=== PATIENT | female | born 1945 | race Caucasian/White ===

== ENCOUNTER → 2016-07-10 | Outpatient (CLI) | payer OTHER | END | disposition home or self-care (01) | LOC: C.LAB 08:52 | PROVIDERS: ATTEND Orthopaedic Surgery Sports Medicine | DX: M65.20 Calcific tendinitis, unspecified site (principal) ==

== ENCOUNTER 2018-03-24 07:09 | Inpatient (IN) ==
--- NOTE | 2018-03-03 10:20 | PAT Medication Instructions ---
Medication Instructions Date of Service March 03, 2018 Home Medications L. gasseri-B. bifidum-B longum [[facility]] 1 tab PO QAM cyclobenzaprine 10 mg PO TID NEEDED hydrochlorothiazide 25 mg PO QAM levothyroxine 112 mcg PO QAM lisinopril 10 mg PO HS loperamide [Imodium A-D] 2 mg PO Q2D meloxicam 15 mg PO QAM omeprazole 20 mg PO QAM pravastatin 20 mg PO HS Bone Meal With Vitamin D 2 cap PO HS ascorbic acid (vitamin C) 1 g PO DAILY aspirin [Aspir-Low] 81 mg PO DAILY biotin 1 cap PO DAILY calcium carbonate [Calcium 600] 1,200 mg PO HS cholecalciferol (vitamin D3) 5,000 unit PO DAILY chromium-brindal rehman [Garcinia Cambogia] 1,500 mg PO HS coconut oil 1 cap PO QPM cyanocobalamin (vitamin B-12) 5,000 mcg PO DAILY dolomite 2 cap PO HS pumpkin seed extract-soy germ [Azo Bladder Control] 1 cap PO DAILY pyridoxine (vitamin B6) 100 mg PO Q OTHER DAY selenium 100 mcg PO DAILY turmeric 1 cap PO DAILY vitamin E 450 mg PO DAILY ASK your surgeon for instructions meloxicam 15 mg PO QAM aspirin [Aspir-Low] 81 mg PO DAILY STOP taking 2 weeks before surgery L. gasseri-B. bifidum-B longum [[facility]] 1 tab PO QAM selenium 100 mcg PO DAILY turmeric 1 cap PO DAILY vitamin E 450 mg PO DAILY dolomite 2 cap PO HS pumpkin seed extract-soy germ [Azo Bladder Control] 1 cap PO DAILY chromium-brindal rehman [Garcinia Cambogia] 1,500 mg PO HS coconut oil 1 cap PO QPM biotin 1 cap PO DAILY calcium carbonate [Calcium 600] 1,200 mg PO HS cholecalciferol (vitamin D3) 5,000 unit PO DAILY Bone Meal With Vitamin D 2 cap PO HS DO NOT take the morning of surgery cyclobenzaprine 10 mg PO TID NEEDED hydrochlorothiazide 25 mg PO QAM loperamide [Imodium A-D] 2 mg PO Q2D pyridoxine (vitamin B6) 100 mg PO Q OTHER DAY cyanocobalamin (vitamin B-12) 5,000 mcg PO DAILY ascorbic acid (vitamin C) 1 g PO DAILY Take morning of surgery With a small sip of water, OTHERWISE NOTHING TO EAT OR DRINK AFTER MIDNIGHT: levothyroxine 112 mcg PO QAM omeprazole 20 mg PO QAM Take evening before surgery cyclobenzaprine 10 mg PO TID NEEDED lisinopril 10 mg PO HS pravastatin 20 mg PO HS Other Notes If you have any questions please call us at [phone] or [phone] or [phone] or [phone]
--- NOTE | 2018-03-03 12:09 | Anesthesiology Consultation ---
Date of Service March 03, 2018 Assessment & Plan (1) Encounter for pre-operative examination: Chart Review Chart Review: Acceptable Risk for Surgery and Patient seen in Pre Admission Testing Consults Requested medical (Dr. Lay (03/08)) Patient was seen by PCP office on 03/08/17, who stated that "Patient is medically cleared". Teaching & Discussion Pre-Anesthesia Teaching/Discussion Notes: Instructed NPO after midnight before surgery, except medications with 15 cc of water. Medication instructions provided according to the PAT guidelines. History Surgery Operation Date: 03/17/18 08:45 Proposed Procedures p Left Total Hip Arthroplasty - Michael Mcmahan MD Height/Weight Height: 5 ft 5 in Weight: 115.1 kg Allergies Allergy/AdvReac Type Severity Reaction Status Date / Time acetaminophen Allergy Rash Verified 03/02/18 11:07 [From Darvocet-N] adhesive Allergy Rash Verified 03/02/18 11:07 cephalexin [From Keflex] Allergy HOSPITALIZED, Verified 03/02/18 11:07 PT STATES SHE COULDN'T WALK ciprofloxacin [From Cipro] Allergy ITCHING Verified 03/02/18 11:07 AND RASH propoxyphene Allergy Rash Verified 03/02/18 11:07 [From Darvocet-N] tramadol Allergy Rash Verified 03/02/18 11:07 gluten AdvReac INTOLERANCE Verified 03/02/18 11:07 Medications Home Medications Medication Instructions Recorded Confirmed Last Taken L. gasseri-B. bifidum-B longum 1 tab PO QAM 03/02/18 03/02/18 Unknown [[facility]] cyclobenzaprine 10 mg PO TID PRN 03/02/18 03/02/18 Unknown hydrochlorothiazide 25 mg PO QAM 03/02/18 03/02/18 Unknown levothyroxine 112 mcg PO QAM 03/02/18 03/02/18 Unknown lisinopril 10 mg PO HS 03/02/18 03/02/18 Unknown loperamide [Imodium A-D] 2 mg PO Q2D 03/02/18 03/02/18 Unknown meloxicam 15 mg PO QAM 03/02/18 03/02/18 Unknown omeprazole 20 mg PO QAM 03/02/18 03/02/18 Unknown pravastatin 20 mg PO HS 03/02/18 03/02/18 Unknown Bone Meal With Vitamin D 2 cap PO HS 03/03/18 03/03/18 Unknown ascorbic acid (vitamin C) [Vitamin 1 g PO DAILY 03/03/18 03/03/18 Unknown C] aspirin [Aspir-Low] 81 mg PO DAILY 03/03/18 03/03/18 Unknown biotin 1 cap PO DAILY 03/03/18 03/03/18 Unknown calcium carbonate [Calcium 600] 1,200 mg PO HS 03/03/18 03/03/18 Unknown cholecalciferol (vitamin D3) 5,000 unit PO DAILY 03/03/18 03/03/18 Unknown [Vitamin D3] chromium-brindal rehman [Garcinia 1,500 mg PO HS 03/03/18 03/03/18 Unknown Cambogia] coconut oil 1 cap PO QPM 03/03/18 03/03/18 Unknown cyanocobalamin (vitamin B-12) 5,000 mcg PO DAILY 03/03/18 03/03/18 Unknown dolomite 2 cap PO HS 03/03/18 Unknown pumpkin seed extract-soy germ [Azo 1 cap PO DAILY 03/03/18 03/03/18 Unknown Bladder Control] pyridoxine (vitamin B6) 100 mg PO Q OTHER DAY 03/03/18 03/03/18 Unknown selenium 100 mcg PO DAILY 03/03/18 03/03/18 Unknown turmeric 1 cap PO DAILY 03/03/18 03/03/18 Unknown vitamin E 450 mg PO DAILY 03/03/18 03/03/18 Unknown Past Medical History Medical History Asthma ALLERGY INDUCED OR COLD VIRUS INDUCED CKD (chronic kidney disease) stage 3, GFR 30-59 ml/min Celiac disease GERD (gastroesophageal reflux disease) History of breast cancer S/P MASTECTOMY OF LEFT BREAST. Hyperlipidemia Hypertension Hypothyroidism Morbid obesity Osteoarthritis Spinal curvature PT STATES SHE RECALLS HAVING A SPINAL FOR CHILDBIRTH AND DUE TO A CURVATURE SHE STATES THEY HAD A VERY DIFFICULT TIME ATTEMPTING THE SPINAL. Past Surgical History Surgical History History of blepharoplasty History of colonoscopy History of esophagogastroduodenoscopy (EGD) WITH STRETCHING History of left mastectomy History of surgery TRANS-FLAP RECONSTRUCTION FOLLOWING MASTECTOMY History of total knee replacement B/L Status post wrist surgery AGE 10 FOLLOWING A FALL. Past Anesthesia History No Hx of Anesthesia Complications and No Family Hx of Anesthesia Complications History of PONV No Motion Sickness Screening History of Motion Sickness: No Social History Smoking Status: Never smoker Do You Dip or Chew Tobacco: No Hx Alcohol Use: Yes alcohol intake frequency: holidays/special occasions only Alcohol Intake Frequency Comment: 0 Hx Substance Use: No substance use type: does not use Exercise / Class Metabolic Activity III < 4 Walking/Shop/Light housework (Limited by hip pain currently. Does stairs once daily. Denies CP or SOB. ) Review of Systems Patient denies chest pain, shortness of breath, dyspnea on exertion, reflux ( controlled by medication), cough, wheezing, palpitations. +Joint pain (hips, hands) Physical Exam Vital Signs BP: 133/83 P: 88 R: 18 T: 98.0 SPO2: 96% on RA Constitutional + morbidly obese ENMT Thyromental Distance: < 3.5 Finger Breadths (3) Mallampati Class: II Upper Partial Neck normal visual inspection and trachea midline; neck extension not limited Respiratory normal respiratory effort Auscultation: lungs clear to auscultation bilaterally Cardiovascular Rate/Rhythm: regular rate and regular rhythm Heart Sounds: no murmur Vessels: no carotid bruit Neurologic moves all extremities Psychiatric Orientation: alert and oriented x 3 Testing Electrocardiogram Date: 03/03/18 Findings: + NSR @ (85) Chest X-Ray Date: 03/03/18 FINDINGS: Eventration of the right hemidiaphragm. The lungs are clear. The heart is normal in size. Mildly tortuous thoracic aorta. No pleural effusions. No pneumothorax. Surgical clips within the left axilla. Mild superior endplate compression deformities within the upper lumbar spine and the mid thoracic spine. These are technically age indeterminate but likely old. IMPRESSION: No acute process. Laboratory Results 03/03/18 12:45 03/03/18 13:01 Blood Type A Positive 03/03/18 12:45 Antibody Screen NEGATIVE 03/03/18 12:45 PT 10.4 Seconds (9.0-12.0) 03/03/18 12:45 INR 1.0 (0.9-1.1) 03/03/18 12:45 APTT 26.5 Seconds (21.0-31.0) 03/03/18 12:45 Hemoglobin A1c 5.4 % (4.5-5.6) 03/03/18 12:45 Urine Color Dark Yellow 03/03/18 13:01 Urine Appearance Cloudy (Clear) H 03/03/18 13:01 Urine pH 5.0 (4.5-7.5) 03/03/18 13:01 Ur Specific [place] 1.026 (1.000-1.030) 03/03/18 13:01 Urine Protein Negative (Negative) 03/03/18 13:01 Urine Glucose (UA) Negative (Negative) 03/03/18 13:01 Urine Ketones Trace (Negative) H 03/03/18 13:01 Urine Nitrite Positive (Negative) H 03/03/18 13:01 Ur Leukocyte Esterase 3+ (Negative) H 03/03/18 13:01 Urine WBC (Auto) >30 /hpf (0-5) H 03/03/18 13:01 Urine RBC (Auto) 0-4 /hpf (0-4) 03/03/18 13:01 U Hyaline Cast (Auto) 5-10 /lpf (0-5) H 03/03/18 13:01 U Epithel Cells (Auto) >30 /lpf (0-5) H 03/03/18 13:01 Urine Bacteria (Auto) 4+ (Negative) H 03/03/18 13:01 03/03/18 13:01 Urine Culture - Final Urine,Clean Catch Escherichia coli Group B Beta Strep Dr. Mcmahan's office notified of urine results. BUN/Cr elevated, but consistent with her CKD stage III.
--- NOTE | 2018-03-03 12:21 | PAT Medication Instructions ---
Medication Instructions Date of Service March 03, 2018 Home Medications [[facility]] 1 tab PO QAM cyclobenzaprine 10 mg PO TID PRN hydrochlorothiazide 25 mg PO QAM levothyroxine 112 mcg PO QAM lisinopril 10 mg PO HS loperamide [Imodium A-D] 2 mg PO Q2D meloxicam 15 mg PO QAM omeprazole 20 mg PO QAM pravastatin 20 mg PO HS Bone Meal With Vitamin D 2 cap PO HS ascorbic acid (vitamin C) 1 g PO DAILY aspirin [Aspir-Low] 81 mg PO DAILY biotin 1 cap PO DAILY calcium carbonate [Calcium 600] 1,200 mg PO HS cholecalciferol (vitamin D3) 5,000 unit PO DAILY chromium-brindal rehman [Garcinia Cambogia] 1,500 mg PO HS coconut oil 1 cap PO QPM cyanocobalamin (vitamin B-12) 5,000 mcg PO DAILY dolomite 2 cap PO HS [Azo Bladder Control] 1 cap PO DAILY pyridoxine (vitamin B6) 100 mg PO Q OTHER DAY selenium 100 mcg PO DAILY turmeric 1 cap PO DAILY vitamin E 450 mg PO DAILY ASK your surgeon for instructions meloxicam 15 mg PO QAM STOP taking 2 weeks before surgery Bone Meal With Vitamin D 2 cap PO HS chromium-brindal rehman [Garcinia Cambogia] 1,500 mg PO HS coconut oil 1 cap PO QPM dolomite 2 cap PO HS selenium 100 mcg PO DAILY turmeric 1 cap PO DAILY vitamin E 450 mg PO DAILY DO NOT take the morning of surgery [[facility]] 1 tab PO QAM cyclobenzaprine 10 mg PO TID PRN hydrochlorothiazide 25 mg PO QAM loperamide [Imodium A-D] 2 mg PO Q2D ascorbic acid (vitamin C) 1 g PO DAILY biotin 1 cap PO DAILY cholecalciferol (vitamin D3) 5,000 unit PO DAILY cyanocobalamin (vitamin B-12) 5,000 mcg PO DAILY [Azo Bladder Control] 1 cap PO DAILY pyridoxine (vitamin B6) 100 mg PO Q OTHER DAY Take morning of surgery With a small sip of water, OTHERWISE NOTHING TO EAT OR DRINK AFTER MIDNIGHT: levothyroxine 112 mcg PO QAM omeprazole 20 mg PO QAM aspirin [Aspir-Low] 81 mg PO DAILY Take evening before surgery pravastatin 20 mg PO HS calcium carbonate [Calcium 600] 1,200 mg PO HS cyclobenzaprine 10 mg PO TID PRN (if needed) lisinopril 10 mg PO HS Other Notes If you have any questions please call us at [phone] or [phone] or [phone] or [phone]
[2018-03-03 13:19] LABS: Basophils # (auto) 0.05 K/uL (0-0.2); Basophils % (auto) 0.9 %; Eosinophils # (auto) 0.21 K/uL (0-0.5); Eosinophils % (auto) 3.6 %; Hematocrit (blood only) 38.8 % (37-47); Hemoglobin 12.6 g/dL (12.0-16.0); Immature Granulocytes # (auto) 0.01 K/uL (0.00-0.02); Immature Granulocytes % (auto) 0.2 %; Lymphocytes # (auto) 1.71 K/uL (1.2-3.4); Lymphocytes % (auto) 29.4 %; Mean Corpuscular Hgb Conc 32.5 g/dL (32-36); Monocytes # (auto) 0.42 K/uL (0.11-0.59); Monocytes % (auto) 7.2 %; Neutrophils # (auto) 3.41 K/uL (1.4-6.5); Neutrophils % (auto) 58.7 %; Platelet Count 287 K/uL (130-400); RDW Coefficient of Variation 12.4 % (11.5-14.5); RDW Standard Deviation 47.3 fL (36.4-46.3); Red Blood Count 3.73 M/uL (4.2-5.4); White Blood Count 5.81 K/uL (4.8-10.8)
[2018-03-03 13:29] LABS: Partial Thromboplastin Time 26.5 Seconds (21.0-31.0); Prothrombin Time 10.4 Seconds (9.0-12.0)
--- NOTE | 2018-03-03 13:31 | XRay Report ---
XR chest Pre-admission PA/Lat HISTORY: Preop. COMPARISON: None. FINDINGS: Eventration of the right hemidiaphragm. The lungs are clear. The heart is normal in size. M ildly tortuous thoracic aorta. No pleural effusions. No pneumothorax. Surgical clips within the left axilla. Mild superior endplate compression deformities within the upper lumbar spine and the mid thor acic spine. These are technically age indeterminate but likely old. IMPRESSION: No acute process. Electronically signed by: Rogerio Denis M.D. 03/03/2018 1:30 PM
[2018-03-03 13:48] LABS: Estimated Average Glucose 108 mg/dl
[2018-03-03 14:14] LABS: Albumin Level 3.7 gm/dl (3.4-5.0); BUN Creatinine Ratio 23.2 (10-20); Calcium 9.2 mg/dl (8.5-10.1); Creatinine Clr Calc Pharmacy 42.4 ml/min; Est GFR (African American) 38.9; Est GFR (Non-African American) 33.6; Potassium 4.6 mmol/L (3.5-5.1)
[2018-03-03 14:18] LABS: Appearance Urine Cloudy (Clear); Bacteria Urine Automated 4+ (Negative); Bilirubin Urine Negative (Negative); Color Urine Dark Yellow; Epithelial Cell Urine Auto >30 /lpf (0-5); Glucose Urine UA Negative (Negative); Ketones Urine Trace (Negative); Leukocyte Esterase Urine 3+ (Negative); Nitrite Urine Positive (Negative); Protein Urine Negative (Negative); Specific Gravity Urine 1.026 (1.000-1.030); Urobilinogen Urine Negative (Negative); WBC Urine Automated >30 /hpf (0-5)
--- NOTE | 2018-03-23 10:18 | History and Physical Report ---
DATE OF ADMISSION: 03/24/2018 CHIEF COMPLAINT: Left hip pain. HISTORY OF PRESENT ILLNESS: The patient is a 72-year-old female with known severe osteoarthritis about her left hip. She has been working on her weight loss to get her weight into an acceptable BMI which she has accomplished. She continues to have pain and disability with activities of daily living. She has pain with prolonged weightbearing and standing activities. She has difficulty with any kneeling, bending, or squatting activities. Due to ongoing pain and disability, she now desires to proceed with left total hip arthroplasty. PAST MEDICAL HISTORY: Hypertension, osteoarthritis, hypothyroidism, metabolic syndrome, hyperlipidemia, obesity, stage III chronic kidney disease, vitamin D deficiency, spinal stenosis, celiac disease, osteoporosis. PAST SURGICAL HISTORY: Total knee arthroplasty in 1998 and 2000, colonoscopy, eye surgery, breast surgery. MEDICATIONS: Fluticasone nasal spray 2 sprays each nostril daily, pravastatin 40 mg daily, levothyroxine 112 mcg daily, hydrochlorothiazide 25 mg daily, lisinopril 10 mg daily, Prilosec 20 mg daily, meloxicam 15 mg daily, Flexeril 10 mg twice daily p.r.n., hydroxyzine 10 mg q. 8 hours p.r.n., vitamin D 1000 units daily, probiotic daily, Ventolin inhaler 2 puffs q. 4 hours p.r.n. shortness of breath, Flovent inhaler 2 puffs twice daily p.r.n., Caltrate plus D daily, Dolamide 2 tablets at bedtime, vitamin C 1000 mg daily, vitamin E 400 units daily, baby aspirin 81 mg daily, vitamin B12 2000 mcg daily, vitamin B6 100 mg twice weekly. ALLERGIES: KEFLEX CAUSES ITCHING AND RASH, BACTRIM CAUSES HIVES, CIPRO CAUSES ITCHING, DARVOCET CAUSES RASH, GLUTEN, MACROBID, PENICILLIN, TRAMADOL, ZOCOR. SOCIAL HISTORY AND REVIEW OF SYSTEMS: Noncontributory. PHYSICAL EXAMINATION: GENERAL: Well-nourished, well-developed elderly female who appears stated age. HEENT: Normocephalic, atraumatic, extraocular movements intact, oropharynx pink and moist. NECK: Supple without adenopathy. LUNGS: Clear to auscultation bilaterally. HEART: Regular rate and rhythm. ABDOMEN: Soft, nontender, nondistended. EXTREMITIES: The upper extremities are within normal limits. Left hip demonstrates limited painful range of motion. There is limitation of active and passive internal/external rotation with pain at end range. X-RAYS: X-rays were reviewed. She has severe osteoarthritis about the left hip with complete loss of the joint space. There are probable cystic changes about the femoral head and acetabulum. ASSESSMENT: Left hip degenerative joint disease. PLAN: Risks versus benefits were discussed, consent was obtained. The patient's primary care physician is Dr. Alvarez from [facility] in [place]. Will proceed with left total hip arthroplasty as indicated.
[~2018-03-24 07:09] MED LIST: ACETAMINOPHEN 500 MG TAB PO SCH; BUPIVACAINE 0.5 % 5 MG/1 ML PF 10ML VIAL ONE; CEFAZOLIN 2000MG 2,000 MG/15 ML SYR IV SCH; CLINDAMYCIN 600 MG/54 ML BAG IV SCH; CeleBREX 200 MG CAP PO SCH; FAMOTIDINE 20 MG TAB PO SCH; GABAPENTIN 300 MG PO SCH; METOCLOPRAMIDE HCL 10 MG TABLET PO SCH; ROPIVACAINE 0.5% HCL/PF 150 MG, BUPIVACAINE 0.5% MPF 30 ML, EPINEPHrine 30MG/30ML (OR U... INFIL SCH; SODIUM CHLORIDE 0.9% 1000ML IV SCH; TRANEXAMIC ACID 1,000 MG **IV Intra-op IV SCH; TRANEXAMIC ACID 1,000 MG **IV Pre-op IV SCH; dexAMETHasone 4 MG TAB PO SCH
[2018-03-24] MEDS: SODIUM CHLORIDE 0.9% 500 ML IV SCH ×3 (07:45→21:38)
[2018-03-24] MEDS ORDERED: MIDAZOLAM HCL 1 MG/ML 2ML VIAL ONE (07:59)
[2018-03-24] MEDS ORDERED: BACITRACIN INJ 50,000 UNIT VIAL ONE (07:59)
[2018-03-24] MEDS ORDERED: ORTHO JOINT ANESTHETIC ONE (07:59)
[2018-03-24] MEDS ORDERED: POVIDONE-IODINE OP SOLN 30 ML BTL ONE (07:59)
[2018-03-24] MEDS ORDERED: fentaNYL citrate 100 MCG/2 ML VIAL ONE ×2 (08:00→10:57)
--- NOTE | 2018-03-24 08:03 | History & Physical Bridge Note ---
Date of Service March 24, 2018 History & Physical Bridge Note I have examined the patient, reviewed the History & Physical and in the interval since the performance of the History & Physical I have noted the following changes of clinical significance: no changes noted
[2018-03-24] MEDS ORDERED: ACETAMINOPHEN 500 MG TAB ONE (08:16)
[2018-03-24] MEDS ORDERED: TRANEXAMIC ACID 1,000 MG in 0.9 % SODIUM CHLORIDE 100 ML IV ONE ×2 (08:30→09:00)
[2018-03-24] MEDS ORDERED: ONDANSETRON INJ 2 MG/ML 2 ML VIAL IV PRN ×2 (09:12→13:01)
[2018-03-24] MEDS ORDERED: PHENYLEPHRINE 100MCG/ML 5ML SYR IV PRN (09:12)
[2018-03-24] MEDS ORDERED: ePHEDrine sulfate 50 MG/ML AMP IV PRN (09:12)
[2018-03-24] MEDS ORDERED: ATROPINE SULFATE 0.1 MG/ML 10ML SYR IV PRN (09:12)
[2018-03-24] MEDS ORDERED: HYDROmorphone INJ 1 MG/ML SYRINGE IV PRN (09:12)
[2018-03-24] MEDS ORDERED: PROPOFOL IV EMULSION 10 MG/ML 20 ML VIAL IV ONE ×3 (09:45→12:48)
[2018-03-24] MEDS ORDERED: LIDOCAINE HCL 2% 2 ML VIAL/AMP(20MG/ML) INFIL ONE (09:45)
--- NOTE | 2018-03-24 10:36 | Operative Report ---
Post Operative Report Pre & Post Diagnosis Operation Date: 03/24/18 09:35 Pre-Op Diagnosis: Left Hip Degenerative Joint Disease Post-Op Diagnosis: Left Hip Degenerative Joint Disease Procedure Operation Date: 03/24/18 09:35 Actual Procedures p Left Total Hip Arthroplasty(Left) - Michael Mcmahan MD Surgeon Michael Mcmahan MD [employer] Max Estimated Blood Loss 100 Findings Consistent with Post-Op Diagnosis Specimens Femoral head Anesthesia Type Spinal Complications none Disposition Accompanied Patient To Recovery: No Disposition: Recovery Room Indications Hip pain Description of Procedure Patient was placed in the right lateral decubitus position the left hip was prepped and draped in usual sterile manner. A [place] incision was made subcutaneous tissue was sharply dissected electrocautery for hemostasis. Fascia incised throughout the length of the wound and the short external rotators were divided from the posterior aspect of the femur using electrocautery. A T capsulotomy incision was made and the hip was dislocated. Femoral neck was osteotomized at the appropriate level using an oscillating saw and an osteotome and mallet femoral head was removed attention was then turned to the acetabulum where reamers were inserted until size 56 gave good closure subchondral bone. A 56 shell was impacted in position. This is held using 2 cancellous bone screws. A acetabular component was impacted into position and was checked with a Gutierrez and was found to be intact. Next attention was turned to the femur where a box osteotome was used to gain access to the femoral canal. A T-handled canal finder was utilized as well as a lateralizing reamer and sequential aspirins were taken up to size 5 which gave good fit and fill a trial reduction with a -25 head gave good reproduction of soft tissue tension was no shuck in extension. The trial was dislocated and removed the final stem was obtained initial irrigation was carried out. Periarticular injection was administered and the stem was impacted into position. The hip was relocated and additional pulsatile irrigation was utilized. The Betadine soap was administered and last dose of TXA was given. Fascia was closed using #1 Vicryl. Subcutaneous tissue was closed using 0 Dexon skin was closed with hunter. A Nina dressing was applied. The patient tolerated the procedure well. Mr. Santana was used for all portions of the case including positioning prepping draping surgical assistance wound closure and dressing application. I attest to the content of the Intraoperative Record and any orders documented therein. Any exceptions are noted below.
[2018-03-24] MEDS ORDERED: ePHEDrine sulfate 50 MG/ML AMP ONE (12:34)
--- NOTE | 2018-03-24 12:35 | Anesthesiology Progress Note ---
Date of Service March 24, 2018 Anesthesia Post Procedure Vital Signs Vital Signs: Temp Pulse Pulse Resp BP BP Pulse Ox 03/24/18 12:20 75 4 L 116/77 98 03/24/18 12:16 77 26 H 112/73 100 03/24/18 12:15 79 19 100 03/24/18 12:10 81 16 113/63 99 03/24/18 12:06 78 15 95/55 L 98 03/24/18 12:05 74 18 95 03/24/18 12:01 74 15 114/59 L 97 03/24/18 12:00 73 15 96 03/24/18 11:55 75 19 106/68 95 03/24/18 11:51 76 17 97/46 L 100 03/24/18 11:50 79 26 H 82 L 03/24/18 11:45 83 17 105/48 L 96 03/24/18 11:41 74 8 L 88/51 L 98 03/24/18 11:40 74 14 95 03/24/18 11:35 67 15 105/61 03/24/18 11:32 71 18 105/69 94 03/24/18 11:30 72 17 100 03/24/18 11:26 71 14 103/54 L 03/24/18 11:25 72 25 H 03/24/18 11:21 72 23 93/58 L 03/24/18 11:20 70 22 03/24/18 11:16 74 16 96/50 L 03/24/18 11:15 75 21 100 03/24/18 11:14 66 11 L 92/51 L 96 03/24/18 11:13 36.1 C L 72 16 92/51 L 98 03/24/18 11:11 57 H 03/24/18 07:58 36.6 C 88 20 160/72 H 96 Pain Intensity Left Hip: Pain Intensity: 0 Notes Mental Status: alert / awake / arousable Patient Amnestic to Procedure: Yes Nausea / Vomiting: adequately controlled Pain: adequately controlled Airway Patency, RR, SpO2: stable & adequate BP & HR: stable & adequate Hydration State: stable & adequate Anesthetic Complications: no major complications apparent
[2018-03-24] MEDS ORDERED: HYDROmorphone INJ 0.5 MG/0.5 ML SYR IV PRN (13:01)
[2018-03-24] MEDS ORDERED: ALUMINUM/MAGNESIUM SUSP 30 ML UDC PO PRN (13:01)
[2018-03-24] MEDS ORDERED: BISACODYL 10 MG SUPP PR PRN (13:01)
[2018-03-24] MEDS ORDERED: MAGNESIUM HYDROXIDE SUSP 30 ML UDC PO PRN (13:01)
[2018-03-24] MEDS ORDERED: NALOXONE HCL 0.4 MG/1 ML VIAL/CARP IV PRN (13:01)
--- NOTE | 2018-03-24 13:24 | XRay Report ---
XR hip 1V LT w pelvis CLINICAL HISTORY: IN PACU - A/P PELVIS and LATERAL HIP pain COMPARISON: None. DISCUSSION: Total left hip arthroplasty. Good contact between prosthetic and underlying bone. Expecte d soft tissue postoperative change IMPRESSION: Anatomic alignment post total left hip arthroplasty The above report was generated using voice recognition software. It may contain grammatical, syntax or spelling errors. Electronically signed by: Maninder Moreau M.D. 03/24/2018 1:22 PM
[2018-03-24] MEDS ORDERED: PYRIDOXINE HCL 50 MG TAB PO SCH (14:00)
[2018-03-24] MEDS: ACETAMINOPHEN 500 MG TAB PO SCH ×2 (14:18→21:15)
[2018-03-24] MEDS: SODIUM CHLORIDE 0.9% 1000ML 1,000 ML IV SCH (14:18)
--- NOTE | 2018-03-24 18:19 | Hospitalist Consultation ---
Date of Consultation March 24, 2018 Assessment & Plan (1) Status post total hip replacement, left: This is a 72yo F with a PMH of HTN, HLD, asthma, CKD III, hypothyroidism, GERD, h/o breast cancer (s/p surgery and chemo in 2002) and OA who is POD#0 s/p left JUANITA by Dr. Mcmahan. -Pt is doing well post-operatively -Per ortho for pain control, wound care, anticoagulation and activities -Monitor H&H (EBL: 100ml, Drain output: 70 ml). Pre-operative hgb of 12.6 -Continue incentive spirometry, PT/OT when appropriate (2) Hypertension: Slightly elevated post-operatively in setting of pain -Continue home dose lisinopril tonight -Planning to continue hctz in the AM. Reassess volume status (3) Hyperlipidemia: Continue Pravastatin (4) CKD (chronic kidney disease) stage 3, GFR 30-59 ml/min: Pre-op Cr of 1.5 (baseline Cr 1.4, GFR 33.6) -Receiving gentle IV fluids post-operatively -BMP in AM (5) Asthma: No SOB or wheezing -Continue home inhalers as needed (6) Hypothyroidism: Continue levothyroxine (7) GERD (gastroesophageal reflux disease): Continue PPI (8) History of breast cancer: S/p L mastectomy and chemo in 2002 -In remission PCP: Dr. Alvarez Dispo: Per primary service Patient seen in collaboration with Dr. Ng. Please see addendum. Dr. Zapata will be following for remainder of admission. Supervising Physician Co-Signing Physician Notes HISTORY: Record reviewed. Patient interviewed and examined around 21:05. Care coordinated with Meredith Chow PA-C. Please refer to her documentation for patient's history. Briefly, 72 YO female with history of hypertension, CKD, and other problems. Left JUANITA performed today under spinal anesthesia. Doing well postoperatively. No chest pain. Minimal cough when performing incentive spirometry: no SOB. No nausea, vomiting. Pain well-controlled. EXAM: General- no distress Lungs- clear to auscultation; no respiratory distress Cardiovascular- RRR; no murmur; no gallop; no JVD; no pretibial edema Abdomen- + bowel sounds, soft, nontender Extremities- no cyanosis; no calf tenderness: TEDS and SCD's applied Neuro- alert, oriented Skin- warm & dry DATA: BUN 36, creatinine 1.54. Other lab studies as noted. Chest x-ray 03/03/18 unremarkable. EKG performed 03/03/18 reviewed and demonstrated NSR at 85 / min, no acute changes. ASSESSMENT AND PLAN: S/P JUANITA. Doing well postoperatively. Continue usual anti-hypertensive meds. Avoid NSAID's if possible in light of CKD. Please refer to CHERYL Chow's documentation for discussion of other issues. Thank you for this consultation. We will follow the patient with you during their hospital stay. My cell # is [phone]. You can reach a member of the [facility] Medicine Team 07/09 via pager @ [phone]. Dr. Zapata will be assuming medical management Wednesday. History of Present Illness Reason for Consultation: Post op medical management Attending Physician: Michael Mcmahan MD History of Present Illness This is a 72yo F with a PMH of HTN, HLD, asthma, CKD III, hypothyroidism, GERD, h/o breast cancer (s/p surgery and chemo in 2002) and OA who is POD#0 s/p left JUANITA by Dr. Mcmahan. Patient is feeling well post-operatively. Denies any surgical pain currently. Was found to have a UTI noticed on pre-operative labwork and took a 1-day course of fosfomycin. Not experiencing at urinary symptoms. Denies fever, chills, lightheadedness, headache, chest pain, palpitations, shortness of breath, nausea, vomiting, abdominal pain, diarrhea or constipation. Has not been taking HCTZ for the last few weeks due to a miscommunication about when to stop it pre-operatively. Had some swelling in her feet this morning. PCP is Dr. Alvarez in [place]. Allergies Allergy/AdvReac Type Severity Reaction Status Date / Time adhesive Allergy Rash Verified 03/24/18 07:45 cephalexin [From Keflex] Allergy HOSPITALIZED, Verified 03/24/18 07:45 PT STATES SHE COULDN'T WALK ciprofloxacin [From Cipro] Allergy ITCHING Verified 03/24/18 07:45 AND RASH propoxyphene Allergy Rash Verified 03/24/18 07:45 [From Darvocet-N] tramadol Allergy Rash Verified 03/24/18 07:45 gluten AdvReac INTOLERANCE Verified 03/24/18 07:45 Home Medications Home Medications Medication Instructions Recorded Confirmed Type L. gasseri-B. bifidum-B longum 1 tab PO QAM 03/02/18 03/24/18 History [[facility]] cyclobenzaprine 10 mg PO TID PRN 03/02/18 03/24/18 History hydrochlorothiazide 25 mg PO QAM 03/02/18 03/24/18 History levothyroxine 112 mcg PO QAM 03/02/18 03/24/18 History lisinopril 10 mg PO HS 03/02/18 03/24/18 History loperamide [Imodium A-D] 2 mg PO Q2D PRN 03/02/18 03/24/18 History meloxicam 15 mg PO QAM 03/02/18 03/24/18 History omeprazole 20 mg PO QAM 03/02/18 03/24/18 History Bone Meal With Vitamin D 2 cap PO HS 03/03/18 03/24/18 History ascorbic acid (vitamin C) [Vitamin 1 g PO DAILY 03/03/18 03/24/18 History C] aspirin [Aspir-Low] 81 mg PO DAILY 03/03/18 03/24/18 History biotin 1 cap PO DAILY 03/03/18 03/24/18 History calcium carbonate [Calcium 600] 1,200 mg PO HS 03/03/18 03/24/18 History cholecalciferol (vitamin D3) 1,000 unit PO DAILY 03/03/18 03/24/18 History [Vitamin D3] chromium-brindal rehman [Garcinia 1,500 mg PO HS 03/03/18 03/24/18 History Cambogia] coconut oil 1 cap PO QPM 03/03/18 03/24/18 History dolomite 2 cap PO HS 03/03/18 03/24/18 History pumpkin seed extract-soy germ [Azo 1 cap PO DAILY 03/03/18 03/24/18 History Bladder Control] pyridoxine (vitamin B6) 100 mg PO Q OTHER DAY 03/03/18 03/24/18 History selenium 100 mcg PO DAILY 03/03/18 03/24/18 History turmeric 1 cap PO DAILY 03/03/18 03/24/18 History vitamin E 400 mg PO DAILY 03/03/18 03/24/18 History albuterol sulfate [Ventolin HFA] 2 puff INHALATION QID PRN 03/24/18 03/24/18 History cyanocobalamin (vitamin B-12) 2,000 mcg PO DAILY 03/24/18 03/24/18 History fluticasone 2 spray INTRANASAL BID 03/24/18 03/24/18 History fluticasone [Flovent HFA] 2 puff INHALATION BID PRN 03/24/18 03/24/18 History pravastatin 40 mg PO HS 03/24/18 03/24/18 History Patient History Medical History Hypertension (Chronic) Hyperlipidemia (Chronic) Asthma (Chronic) ALLERGY INDUCED OR COLD VIRUS INDUCED Hypothyroidism (Chronic) GERD (gastroesophageal reflux disease) (Chronic) Osteoarthritis (Chronic) History of breast cancer (Resolved) S/P MASTECTOMY OF LEFT BREAST. Spinal curvature (Chronic) PT STATES SHE RECALLS HAVING A SPINAL FOR CHILDBIRTH AND DUE TO A CURVATURE SHE STATES THEY HAD A VERY DIFFICULT TIME ATTEMPTING THE SPINAL. Celiac disease (Chronic) CKD (chronic kidney disease) stage 3, GFR 30-59 ml/min (Chronic) Morbid obesity (Chronic) Surgical History History of left mastectomy (Resolved) History of total knee replacement (Resolved) B/L History of blepharoplasty (Resolved) Status post wrist surgery (Resolved) AGE 10 FOLLOWING A FALL. Family History Mother Esophageal cancer Social History Current Living Situation: Spouse Other Information That Helps Us Care for You: No Feels Safe at Home: Yes Safety Concerns: Feels Safe At This Time Smoking Status: Never smoker Do You Dip or Chew Tobacco: No Hx Alcohol Use: Yes Alcohol Intake Frequency: holidays/special occasions only Hx Substance Use: No Beliefs That Will Affect Care: None Preferred Language: Belarusian Communication Ability: Effective Blending Line Attendant Required: No Review of Systems Constitutional: no fever, no chills and no weakness Eyes: no worsening vision Ear, Nose, Mouth, Throat: no nasal congestion and no sore throat Respiratory: no cough, no dyspnea and no wheezing Cardiovascular: no chest pain and no dyspnea on exertion Gastrointestinal: no abdominal pain, no nausea, no vomiting, no constipation and no diarrhea/loose stools Genitourinary (Female): no dysuria and no hematuria Musculoskeletal: no joint pain Integumentary: no rash, no non-healing lesions and no change in skin color Neurologic: no localized weakness, no numbness, no paresthesia, no headache(s) and no confusion Psychiatric: no behavioral changes Physical Exam 2 Vital Signs (Past 24 Hours): Last Vital Signs Temp 36.3 C L 03/24/18 16:14 Pulse 91 H 03/24/18 16:14 Resp 18 03/24/18 16:14 BP 142/84 H 03/24/18 16:14 Pulse Ox 95 03/24/18 16:14 Physical Exam: General Appearance: WD/WN, no apparent distress, sitting on side of bed eating dinner Head: normocephalic, atraumatic Eyes: normal inspection, PERRL, EOMI ENT: hearing grossly normal, pharynx normal (moist mucous membranes) Neck: supple, no JVD, no adenopathy Respiratory/Chest: lungs clear to auscultation. No wheezes, rales or rhonci. No respiratory distress or accessory muscle use Cardiovascular: regular rate, rhythm, no murmur, normal peripheral pulses, 1+ BLE edema Abdomen/GI: normal bowel sounds, soft, non-tender to palpation Extremities/Musculoskelatal: normal inspection, L hip with surgical dressing in place, drain visualized. No calf tenderness, normal capillary refill, no pedal edema Neurologic/Psych: alert, normal mood/affect, oriented x 3 Skin: normal color, warm/dry Results & Data Laboratory Results Pertinent pre-op labs (03/03/18): Hgb: 12.6 Creatinine: 1.5 GFR: 33.6 BUN: 36
[2018-03-24] MEDS: OXYCODONE HCL IR 5 MG TAB (IMMEDIATE RELEASE) PO PRN ×2 (18:42→23:32)
[2018-03-24] MEDS: CLINDAMYCIN 600 MG in DEXTROSE 5% 50 ML IV SCH (18:43)
[2018-03-24] MEDS ORDERED: LISINOPRIL 10 MG TAB PO SCH (21:00)
[2018-03-24] MEDS ORDERED: CALCIUM CARBONATE 1250MG TAB PO SCH (21:00)
[2018-03-24] MEDS ORDERED: PRAVASTATIN SOD 20 MG TAB PO SCH (21:00)
[2018-03-24] MEDS ORDERED: SENNA 8.6 MG TAB PO SCH (21:00)
[2018-03-24] MEDS ORDERED: PRAVASTATIN SOD 40 MG TAB PO SCH (21:00)
[2018-03-24] MEDS: DOCUSATE SODIUM 100 MG CAP PO SCH (21:13)
[2018-03-24] MEDS: ASPIRIN 81 MG ECTAB PO SCH (21:15)
[2018-03-24] MEDS ORDERED: Nursing to Pharmacy Communication ONE (23:41)
[2018-03-25] MEDS: SODIUM CHLORIDE 0.9% 1000ML 1,000 ML IV SCH (01:01)
[2018-03-25] MEDS: CLINDAMYCIN 600 MG in DEXTROSE 5% 50 ML IV SCH (01:43)
[2018-03-25 05:48] LABS: Hematocrit (blood only) 32.5 % (37-47); Hemoglobin 10.7 g/dL (12.0-16.0); Immature Granulocytes # (auto) 0.03 K/uL (0.00-0.02); Immature Granulocytes % (auto) 0.3 %; Lymphocytes # (auto) 0.81 K/uL (1.2-3.4); Lymphocytes % (auto) 7.2 %; Mean Corpuscular Hgb Conc 32.9 g/dL (32-36); Mean Corpuscular Volume 102.2 fL (80-100); Mean Platelet Volume 9.5 fL (7.4-10.4); Monocytes # (auto) 0.47 K/uL (0.11-0.59); Monocytes % (auto) 4.2 %; Neutrophils % (auto) 88.3 %; Platelet Count 243 K/uL (130-400); RDW Coefficient of Variation 11.7 % (11.5-14.5); RDW Standard Deviation 43.6 fL (36.4-46.3); Red Blood Count 3.18 M/uL (4.2-5.4); White Blood Count 11.31 K/uL (4.8-10.8)
[2018-03-25] MEDS: ACETAMINOPHEN 500 MG TAB PO SCH ×3 (06:08→14:47)
[2018-03-25 06:17] LABS: BUN Creatinine Ratio 25.9 (10-20); Calcium 8.3 mg/dl (8.5-10.1); Creatinine Clr Calc Pharmacy 39.3 ml/min; Est GFR (African American) 39.6; Est GFR (Non-African American) 34.1; Potassium 5.4 mmol/L (3.5-5.1)
--- NOTE | 2018-03-25 07:48 | Anesthesiology Progress Note ---
Date of Service March 25, 2018 Anesthesia Post Procedure Vital Signs Vital Signs: Temp Pulse Pulse Resp BP BP Pulse Ox 03/25/18 07:17 36.6 C 96 H 18 130/78 93 03/25/18 02:41 36.6 C 92 H 16 123/73 95 03/24/18 23:11 36.6 C 97 H 16 130/78 96 03/24/18 20:45 36.7 C 92 H 18 137/85 91 03/24/18 16:14 36.3 C L 91 H 18 142/84 H 95 03/24/18 16:10 36.3 C L 91 H 18 142/84 H 95 03/24/18 14:58 36.4 C L 98 H 16 125/77 98 03/24/18 14:04 36.4 C L 98 H 18 132/78 96 03/24/18 13:21 36.5 C 85 18 132/80 90 03/24/18 12:55 36.3 C L 85 20 126/80 100 03/24/18 12:20 75 4 L 116/77 98 03/24/18 12:16 77 26 H 112/73 100 03/24/18 12:15 79 19 100 03/24/18 12:10 81 16 113/63 99 03/24/18 12:06 78 15 95/55 L 98 03/24/18 12:05 74 18 95 03/24/18 12:01 74 15 114/59 L 97 03/24/18 12:00 73 15 96 03/24/18 11:55 75 19 106/68 95 03/24/18 11:51 76 17 97/46 L 100 03/24/18 11:50 79 26 H 82 L 03/24/18 11:45 83 17 105/48 L 96 03/24/18 11:41 74 8 L 88/51 L 98 03/24/18 11:40 74 14 95 03/24/18 11:35 67 15 105/61 03/24/18 11:32 71 18 105/69 94 03/24/18 11:30 72 17 100 03/24/18 11:26 71 14 103/54 L 03/24/18 11:25 72 25 H 03/24/18 11:21 72 23 93/58 L 03/24/18 11:20 70 22 03/24/18 11:16 74 16 96/50 L 03/24/18 11:15 75 21 100 03/24/18 11:14 66 11 L 92/51 L 96 03/24/18 11:13 36.1 C L 72 16 92/51 L 98 03/24/18 11:11 57 H 03/24/18 07:58 36.6 C 88 20 160/72 H 96 Pain Intensity Left Hip: Pain Intensity: 0 Notes Mental Status: alert / awake / arousable and participated in evaluation Patient Amnestic to Procedure: Yes Nausea / Vomiting: adequately controlled Pain: adequately controlled Airway Patency, RR, SpO2: stable & adequate BP & HR: stable & adequate Hydration State: stable & adequate Neuraxial Anesthesia: was administered and sensory block resolved Anesthetic Complications: no major complications apparent and Pt Satisfied with anesthetic care
[2018-03-25] MEDS: DOCUSATE SODIUM 100 MG CAP PO SCH (08:38)
[2018-03-25] MEDS: ASPIRIN 81 MG ECTAB PO SCH (08:38)
[2018-03-25] MEDS ORDERED: hydroCHLOROthiazide 25 MG TAB PO SCH (09:00)
[2018-03-25] MEDS ORDERED: CHOLECALCIFEROL 1,000 UNITS TAB PO SCH ×2 (09:00)
[2018-03-25] MEDS ORDERED: MULTIVITAMIN TAB PO SCH (09:00)
[2018-03-25] MEDS ORDERED: CYANOCOBALAMIN 500 MCG TABLET (VITAMIN B-12) PO SCH (09:00)
[2018-03-25] MEDS ORDERED: PANTOprazole 40 MG TAB PO SCH (09:00)
[2018-03-25] MEDS ORDERED: CYANOCOBALAMIN (VITAMIN B-12) 2,500 MCG TAB.SUBL SL SCH (09:00)
[2018-03-25] MEDS: OXYCODONE HCL IR 5 MG TAB (IMMEDIATE RELEASE) PO PRN (09:31)
--- NOTE | 2018-03-25 09:34 | Progress Note ---
DATE: 03/25/2018 SUBJECTIVE: The patient is a 72-year-old white female who is postop day #1 status post left total hip arthroplasty. She is currently sitting up in bed, awake and alert and oriented. She has no complaints and pain is controlled. She denies any shortness of breath, chest pain, lightheadedness. On discussion about discharge, the patient states that she is hoping to have home health services when she is discharged. OBJECTIVE: Vital signs stable and she is afebrile. Hemovac drainage showed 75 mL from the latest shift and hemoglobin was 10.7 this morning. Potassium was slightly elevated at 5.4. Prevena dressing was clean, dry, intact and functioning. Hemovac is currently in and still functioning as well. Calf and thigh are soft, nontender. Neurovascularly is intact. Toes are mobile and leg lengths appear equal. ASSESSMENT: 1. Postop day #1 status post left total hip arthroplasty. 2. Mild hyperkalemia. 3. The patient has a history of CKD and her previous BUN and creatinine from 03/03/2018 is essentially unchanged. PLAN: We will continue PT and OT protocols today, weightbearing as tolerated. Continue medical management per [facility]. DVT prophylaxis with SCDs, QUENTIN hose and aspirin b.i.d. Continue current pain management as written.
--- NOTE | 2018-03-25 10:19 | Hospitalist Progress Note ---
Date of Service March 25, 2018 Assessment & Plan (1) Status post total hip replacement, left: This is a 72yo F with a PMH of HTN, HLD, asthma, CKD III, hypothyroidism, GERD, h/o breast cancer (s/p surgery and chemo in 2002) and OA who is POD#1 s/p left JUANITA by Dr. Mcmahan. Resume Post Op Care per Surgery Protocol Incentive Spirometry 10x per Hour Resume Relative Home Meds Where Appropriate PT/OT with appropriate fall precautions Transition from IV to PO Pain control DVT Prophylaxis Per Surgery Protocol Monitor Daily Labs (2) Hypertension: Controlled (3) Hyperlipidemia: Continue Pravastatin (4) Acute blood loss as cause of postoperative anemia: Monitor hemoglobin (5) CKD (chronic kidney disease) stage 3, GFR 30-59 ml/min: We will monitor (6) Asthma: No SOB or wheezing -Continue home inhalers as needed (7) Hypothyroidism: Continue levothyroxine (8) GERD (gastroesophageal reflux disease): Continue PPI (9) Leukocytosis: Likely reactive from surgery (10) Hyperkalemia: We will monitor, IV fluids, will hold lisinopril, add Norvasc if needed (11) History of breast cancer: S/p L mastectomy and chemo in 2002 -In remission PCP: Dr. Alvarez Dispo: Per primary service Subjective ROS-No Headache, No Visual Changes, No Fever, No Chills, No Neck Pain or Stiffness, No Chest Pain, No Palpitations, No SOB, No ARIAS, No Cough, No Sputum, No Wheezing, No Abdominal Pain, No Diarrhea, No Hematemesis, No Hemoptysis, No Unexpected Weight Loss, No Flank pain, No Melena, No Hematochezia, No Frequency , No Urgency, No Burning, No Hematuria, No Rashes, No Diaphoresis. Appetite is Normal, Mild L Hip Pain Physical Exam Gen-AAO x 3, NAD, Afebrile, Obese Head-NCAT, EOMI, PERRLA, Anicteric Sclera, No Posterior Pharyngeal Erythema Neck-Supple, No JVD, No Thyromegaly, No Masses, No LAD, No Bruits Lungs-Clear to Auscultation Bilaterally, No Rales, No Rhonchi, No Wheezing, No Crepitus Chest-No S4, +S1, +S2, No S3, No Murmurs, No Rubs, No Gallops, No Ectopy Abdomen-Soft, Obese, Bowel Sounds Present, Non Tender, Non Distended, No Hepatomegaly, No Splenomegaly, No Palpable Masses, No Rebound, No Rigidity, No Guarding Musculoskeletal-Full Range of Motion Bilaterally, No CVAT, Hip Pain Left Extremities-No Cyanosis, No Clubbing, No Edema Nuero-Cranial Nerves II-XII grossly intact, Motor WNL, DTRs WNL, Strength WNL, No Focal Psych-Normal Mood Physical Exam 2 Vital Signs (Past 24 Hours): Last Vital Signs Temp 36.6 C 03/25/18 07:17 Pulse 96 H 03/25/18 07:17 Resp 18 03/25/18 07:17 BP 130/78 03/25/18 07:17 Pulse Ox 93 03/25/18 07:17 Results & Data Laboratory Results Current Diagnoses Hypothyroidism, unspecified (03/24/18) Hyperlipidemia, unspecified (03/24/18) Essential (primary) hypertension (03/24/18) Unspecified asthma, uncomplicated (03/24/18) Gastro-esophageal reflux disease without esophagitis (03/24/18) Chronic kidney disease, stage 3 (moderate) (03/24/18) Encounter for other preprocedural examination (03/24/18) Personal history of malignant neoplasm of breast (03/24/18) Presence of left artificial hip joint (03/24/18) Allergies adhesive Allergy (Verified 03/24/18 07:45) Rash cephalexin [From Keflex] Allergy (Verified 03/24/18 07:45) HOSPITALIZED, PT STATES SHE COULDN'T WALK ciprofloxacin [From Cipro] Allergy (Verified 03/24/18 07:45) ITCHING AND RASH propoxyphene [From Darvocet-N] Allergy (Verified 03/24/18 07:45) Rash tramadol Allergy (Verified 03/24/18 07:45) Rash gluten Adverse Reaction (Verified 03/24/18 07:45) INTOLERANCE Height/Weight/Isolation Height 5 ft 5 in Weight 97.749 kg Chemistry 03/25/18 05:15 Sodium 136 Potassium 5.4 H Chloride 109 H Carbon Dioxide 20 L Anion Gap 7.0 BUN 39 H Creatinine 1.52 H Glucose 133 H
[2018-03-25] MEDS ORDERED: AMLODIPINE BESYLATE 5 MG TAB PO SCH (10:45)
[2018-03-25] MEDS ORDERED: LOPERAMIDE HCL 2 MG CAP PO PRN (16:02)
[2018-03-25] MEDS ORDERED: FLUTICASONE HFA 110MCG INHALER INH PRN (16:02)
[2018-03-25] MEDS ORDERED: ALBUTEROL HFA 8 GM INHALER INH PRN (16:02)
[2018-03-25] MEDS ORDERED: FLUTICASONE PROPIONATE NA SPR 16 GM BTL SCH (21:00)
[2018-03-25] MEDS ORDERED: PRAVASTATIN SOD 40 MG TAB PO SCH (21:00)
[2018-03-26] MEDS ORDERED: SELENIUM 100 MCG PO SCH (09:00)
[2018-03-26] MEDS ORDERED: hydroCHLOROthiazide 25 MG TAB PO SCH (09:00)
--- NOTE | 2018-03-30 01:39 | Discharge Summary ---
DISCHARGE DIAGNOSIS: Degenerative joint disease, left hip. SECONDARY DIAGNOSES: Hypertension, osteoarthritis, hypothyroidism, metabolic syndrome, hyperlipidemia, obesity, stage III chronic kidney disease, vitamin D deficiency, spinal stenosis, celiac disease, osteoporosis. CONSULTATIONS: Meredith Chow PA-C/Anton Ng MD COMPLICATIONS: None. PROCEDURES: Left total hip arthroplasty performed by Dr. Mcmahan on 03/24/2018. BRIEF HISTORY: As dictated in the history and physical. HOSPITAL SUMMARY: The patient was met on the above-noted date and had the above-noted surgery performed, which she tolerated well. On the first postoperative day, the patient was in her bed, sitting up, awake and alert. She had no complaints. Pain was controlled. Denies shortness of breath, chest pain, or lightheadedness. The patient was hoping to get home with home health services when she was discharged. Vital signs were stable. She was afebrile. Hemovac drainage showed 75 mL in the previous shift. Hemoglobin was 10.7. Potassium was slightly elevated at 5.4. Prevena dressing was clean, dry and intact and functioning. Hemovac was currently in and still functioning as well. Calf and thigh are soft and nontender. Neurovascularly intact. Toes were mobile. Leg lengths appeared equal. She was started on physical therapy protocol and continued on DVT prophylaxis and pain management. She was continued on medical management per [facility] service and she is progressing well. Later that day, she was remaining medically stable and orthopedically stable and it was felt she could be discharged to home with home health services. For further review, please see chart. LABORATORY AND X-RAY DATA: As per chart. DISCHARGE INSTRUCTIONS: The patient was discharged to home in satisfactory condition on 03/25/2018. DIET: Regular. ACTIVITY: Weightbearing as tolerated, left lower extremity with walker. Follow JUANITA instruction sheets and special care instructions as noted. Follow up with Dr. Mcmahan in 2 weeks. The patient to call for appointment if one has not been made for you. DISCHARGE MEDICATIONS: Acetaminophen 500 mg p.o. q. 4 hours p.r.n., aspirin 81 mg p.o. b.i.d., oxycodone 5 mg p.o. q. 4 hours, sennosides 17.2 mg p.o. at bedtime, Bactrim 1 tab p.o. q. 12 hours. Resume home meds as listed. Stop taking previous aspirin dosage and meloxicam.
== END 2018-03-25 18:38 | disposition home health service (06) | DRG 470 ==
LOC: ASU 07:09 → 3E 11:21